=== PATIENT | male | born 1990 | race Caucasian/White ===

== ENCOUNTER 2021-03-18 13:07 | Emergency (ER) | payer MEDICAID, OTHER ==
[~2021-03-18] VITALS: Ht 177.8 cm; Wt 75.0 kg
[2021-03-18] MEDS ORDERED: ONDANSETRON HCL 4MG/2ML INJ IV STA (13:26)
[2021-03-18] MEDS ORDERED: MORPHINE SULFATE 4 MG/ML CPJ (NOT FOR IM USE) IV STA (13:26)
[2021-03-18] MEDS ORDERED: SODIUM CHLORIDE 0.9% 1,000 ML IV ONE (13:30)
[2021-03-18] MEDS ORDERED: TETANUS, DIPHTHERIA, PERTUSSIS VAC/PF 0.5ML (>7YR OLD) IM ONE (13:30)
[2021-03-18] MEDS ORDERED: LIDOCAINE HCL/PF 1% 10 MG/ML 5ML VIAL IJ ONE (13:30)
[2021-03-18] MEDS ORDERED: VANCOMYCIN 1 G PREMIX 200 ML IV SCH (14:00)
[2021-03-18] MEDS ORDERED: PIPERACILLIN/TAZOBACTAM 3.375GM/50ML PREMIX IV ONE (14:00)
[2021-03-18] MEDS ORDERED: PIPERACILLIN/TAZ 3.375G PREMIX 50 ML IV NR (14:00)
[2021-03-18 14:28] LABS: BASOPHILS % 0.4 % (0.0-2.0); EOSINOPHILS % 0.2 % (0.0-5.0); HEMATOCRIT. 37.9 % (42.0-52.0); HEMOGLOBIN. 13.3 g/dL (14.0-18.0); LYMPHOCYTES % 13.5 % (20.0-50.0); MEAN CORPUSCULAR VOLUME 82.5 fL (80.0-94.0); MEAN PLATELET VOLUME 7.4 fl (7.4-10.4); MONOCYTES % 9.5 % (2.0-8.0); NEUTROPHILS % 76.4 % (40.0-76.0); PLATELET 382 x1000/uL (130-400); RED BLOOD CELL COUNT 4.59 mill/uL (4.7-6.1); RED CELL DISTRIBUTION WIDTH 12.8 % (11.6-14.6)
[2021-03-18 14:32] LABS: CHLORIDE 104 mEq/L (98-107)
[2021-03-18] MEDS ORDERED: IOHEXOL-300 100 ML BOTTLE ONE (17:03)
[2021-03-18 19:21] VITALS: BP 132/76
== END 2021-03-18 19:41 | disposition short-term general hospital (02) ==
LOC: ER 13:07 → EDBEDREQTM 16:20 → ER 19:41 → CANBEDREQ 22:39
DX: L02.414 Cutaneous abscess of left upper limb (principal); Z91.81 History of falling; Z23 Encounter for immunization
CPT/HCPCS: 10060; 36415; 73080; 73201; 80053; 85025; 87040; 90471; 90715; 96361; 96365; 96368; 96375; 99285; J2270; J2405; J2543; J3370; J3490; J7030; Q9967; Z7610

== ENCOUNTER 2021-07-08 20:46 | Emergency (ER) | payer OTHER ==
[~2021-07-08] VITALS: Ht 177.8 cm; Wt 64.0 kg
[2021-07-08 20:50] VITALS: BP 132/82
[2021-07-09] MEDS ORDERED: IBUP-2030 MT (13:49)
[2021-07-09] MEDS ORDERED: AMOX-494 MT (13:49)
== END 2021-07-09 00:18 | disposition left against medical advice (07) ==
LOC: ER 20:46
DX: Z53.21 Procedure and treatment not carried out due to patient leaving prior to being seen by health care provider (principal)

== ENCOUNTER 2021-07-09 13:08 | Emergency (ER) | payer OTHER ==
[~2021-07-09] VITALS: Ht 172.7 cm; Wt 75.0 kg
[2021-07-09] MEDS ORDERED: HYDROCODONE/ACETAMINOPHEN 5/325MG TABLET PO ONE (13:45)
[2021-07-09] MEDS ORDERED: IBUP-2030 MT (13:49)
[2021-07-09] MEDS ORDERED: AMOX-494 MT (13:49)
[2021-07-09 14:05] VITALS: BP 132/84
== END 2021-07-09 14:35 | disposition home or self-care (01) ==
LOC: ER 13:08
DX: K04.7 Periapical abscess without sinus (principal); R51.9 Headache, unspecified
CPT/HCPCS: 99283

== ENCOUNTER 2022-06-07 16:13 | Emergency (ER) | payer OTHER ==
[~2022-06-07] VITALS: Ht 172.7 cm; Wt 64.0 kg
[~2022-06-07 16:13] MED LIST: AMOX-494 MT; IBUP-2030 MT
[2022-06-07] MEDS ORDERED: KETOROLAC 15MG/ML VIAL IV ONE (20:00)
[2022-06-07] MEDS ORDERED: BACITRACIN ZINC OINT UDPKT TOP ONE (20:00)
[2022-06-07] MEDS ORDERED: TETANUS, DIPHTHERIA, PERTUSSIS VAC/PF 0.5ML (>10YR OLD) IM ONE ×2 (20:00→22:30)
[2022-06-07] MEDS ORDERED: SODIUM CHLORIDE 0.9% 1000ML BAG (SEPSIS BOLUS) IV ONE (20:00)
[2022-06-07] MEDS ORDERED: LIDOCAINE HCL/PF 1% 10 MG/ML 5ML VIAL INFIL ONE (20:00)
[2022-06-07] MEDS ORDERED: VANCOMYCIN 1G PREMIX 200 ML IV ONE (20:00)
[2022-06-07 21:01] LABS: BASOPHILS % 0.3 % (0.0-2.0); EOSINOPHILS % 0.1 % (0.0-5.0); HEMOGLOBIN. 13.4 g/dL (14.0-18.0); LYMPHOCYTES % 10.3 % (20.0-50.0); MEAN CORPUSCULAR VOLUME 83.5 fL (80.0-94.0); MEAN PLATELET VOLUME 7.4 fl (7.4-10.4); MONOCYTES % 6.4 % (2.0-8.0); NEUTROPHILS % 82.9 % (40.0-76.0); PLATELET 337 x1000/uL (130-400); RED CELL DISTRIBUTION WIDTH 14.2 % (11.6-14.6)
[2022-06-07 21:08] LABS: CHLORIDE 102 mEq/L (98-107)
[2022-06-07] MEDS: AMPICILLIN SOD/SULBACTAM NA 3 G in SODIUM CHLORIDE 0.9% 100 ML IV SCH (21:50)
[2022-06-08] MEDS: AMPICILLIN SOD/SULBACTAM NA 3 G in SODIUM CHLORIDE 0.9% 100 ML IV SCH (03:50)
[2022-06-08 06:00] VITALS: BP 123/85
[2022-06-08] MEDS ORDERED: AMOX1TAB16 MT (07:42)
[2022-06-08] MEDS ORDERED: IBUP-2029 MT (07:42)
== END 2022-06-08 09:15 | disposition home or self-care (01) ==
LOC: ER 16:13
DX: L03.114 Cellulitis of left upper limb (principal); M65.9 Synovitis and tenosynovitis, unspecified; Z20.822 Contact with and (suspected) exposure to COVID-19
CPT/HCPCS: 36415; 73130; 80053; 85025; 87040; 87426; 90471; 90715; 96365; 96367; 96375; 99284; C9803; J0295; J1885; J3370; J7030; J7050

== ENCOUNTER 2023-01-23 11:04 | Emergency (ER) | payer OTHER ==
[~2023-01-23] VITALS: Ht 177.8 cm; Wt 65.9 kg
[~2023-01-23 11:04] MED LIST changes: +AMOX1TAB16 MT; +IBUP-2029 MT
[2023-01-23 11:12] VITALS: BP 127/81
[2023-01-23] MEDS ORDERED: PERM60CR4 TP (13:58)
== END 2023-01-23 14:10 | disposition home or self-care (01) ==
LOC: ER 11:04
DX: B86 Scabies (principal); Z13.9 Encounter for screening, unspecified; Z59.00 Homelessness unspecified
CPT/HCPCS: 99282; Z7610

== ENCOUNTER 2023-02-04 21:18 | Emergency (ER) | payer OTHER ==
[~2023-02-04] VITALS: Ht 170.2 cm; Wt 68.0 kg
[~2023-02-04 21:18] MED LIST changes: +PERM60CR4 TP
[2023-02-04 22:28] VITALS: BP 125/94
[2023-02-04] MEDS ORDERED: CEPH500C2 MT (23:07)
[2023-02-04] MEDS ORDERED: SULF1TAB48 PO (23:07)
[2023-02-04] MEDS ORDERED: NAPR-681 PO (23:07)
== END 2023-02-04 23:23 | disposition home or self-care (01) ==
LOC: ER 21:18
DX: H60.11 Cellulitis of right external ear (principal)
CPT/HCPCS: 99283

== ENCOUNTER 2023-03-08 17:13 | Emergency (ER) | payer OTHER ==
[~2023-03-08] VITALS: Ht 175.3 cm; Wt 80.0 kg
[~2023-03-08 17:13] MED LIST changes: +CEPH500C2 MT; +NAPR-681 PO; +SULF1TAB48 PO
[2023-03-08 17:15] VITALS: BP 118/69
[2023-03-08] MEDS ORDERED: IBUP-2029 MT (23:19)
[2023-03-08] MEDS ORDERED: CEPH500T MT (23:19)
== END 2023-03-08 23:41 | disposition home or self-care (01) ==
LOC: ER 17:13
DX: L03.317 Cellulitis of buttock (principal); K62.89 Other specified diseases of anus and rectum; F12.90 Cannabis use, unspecified, uncomplicated
CPT/HCPCS: 99283; 99284